=== PATIENT | female | born 1955 | race African-American/Black ===

== ENCOUNTER 2018-07-25 23:57 | Inpatient (IN) | payer BC ==
[2018-07-26 01:04] LABS: #Eosinphils 0.1 thou/uL (0.0-0.7); #Lymphocytes 1.6 thou/uL (1.20-3.40); #Monocytes 0.5 thou/uL (0.11-0.59); #Neutrophils 6.4 thou/uL (1.40-6.50); %Basophils 0.3 % (0.0-1.0); %Eosinophils 0.7 % (0.0-10.0); %Lymphocytes 18.1 % (21.0-51.0); %Neutrophils 74.9 % (42.0-75.0); Hemoglobin 13.3 g/dL (12.0-16.0); Mean Corpuscular HGB CONC 33.9 g/dL (32.0-36.0); Mean Corpuscular Hemoglobin 30.7 pg (27.0-31.0); Mean Corpuscular Volume 90.5 fL (78.0-98.0); Mean Platelet Volume 6.5 fL (7.4-10.4); Platelet Count 237 thou/uL (130-400); RBC Distribution Width 12.1 % (11.5-14.5); Red Blood Cell (RBC) Count 4.33 mill/uL (4.20-5.40); White Blood Cell (WBC) Count 8.6 thou/uL (4.8-10.8)
[2018-07-26 01:22] LABS: ALT (SGPT) 11 U/L (8-55); AST (SGOT) 19 U/L (5-34); Albumin 4.3 g/dL (3.4-4.8); Alkaline Phosphatase 89 U/L (40-150); Anion Gap 12 mmol/L (10-20); BUN (Urea Nitrogen) 16 mg/dL (9.8-20.1); Bilirubin, Total 0.5 mg/dL (0.2-1.2); CK (CPK) 95 U/L (29-168); Calc. Creatinine Clearance 0 mL/min (70-130); Calcium 9.4 mg/dL (7.8-10.44); Carbon Dioxide 27 mmol/L (23-31); Chloride 103 mmol/L (98-107); Estimated GFR-MDRD 71; Globulin 3.5 g/dL (2.4-3.5); Glucose 141 mg/dL (80-115); Lipase 17 U/L (8-78); Potassium 4.1 mmol/L (3.5-5.1); Protein, Total 7.8 g/dL (6.0-8.3); Sodium 138 mmol/L (136-145)
[2018-07-26 01:26] LABS: CKMB 2.1 ng/mL (0-6.6); Troponin I Less than 0.010 ng/mL (< 0.028)
[2018-07-26] MEDS ORDERED: Ondansetron HCl/PF 4 MG/2 ML Vial ONE (01:50)
[2018-07-26] MEDS ORDERED: Midazolam HCl 2 mg/2 ml Vial ONE (03:15)
[2018-07-26] MEDS ORDERED: Dextrose 5 %-0.45 % NaCl 1,000 ML IV SCH (04:52)
[2018-07-26 05:04] LABS: Bilirubin Negative (Negative); Blood, Urine Negative (Negative); Clarity CLEAR (Clear); Glucose, Urine (Dipstick) Negative (Negative); Leukocyte Negative (Negative); Nitrite Negative (Negative); Protein, Urine (Dipstick) Negative (Neg-Trace); Urobilinogen 0.2 mg/dL (0.2-1.0); pH, Urine 6.5 (5.0-9.0)
[2018-07-26 05:14] VITALS: BMI 30.2
[2018-07-26] MEDS ORDERED: Acetaminophen 650 MG Suppository PR PRN (05:14)
[2018-07-26] MEDS ORDERED: Bisacodyl 5 MG TAB PO PRN (05:14)
[2018-07-26] MEDS ORDERED: Ondansetron ODT 4 MG TAB PO PRN (05:14)
[2018-07-26] MEDS ORDERED: Ondansetron HCl/PF 4 MG/2 ML Vial IVP PRN (05:14)
[2018-07-26] MEDS ORDERED: Senokot 8.6 MG TAB PO PRN (05:14)
[2018-07-26] MEDS ORDERED: Sodium Chloride 0.9% 1,000 ML IV SCH (05:15)
[2018-07-26 05:22] LABS: Specific Gravity, Urine 1.054 (1.002-1.036)
[2018-07-26] MEDS ORDERED: ISOVUE-370 76%-LOCM 1 ML ONE (07:36)
[2018-07-26] MEDS: Aspirin 81 mg Enteric Coated Tablet PO SCH (08:19)
[2018-07-26] MEDS: Lisinopril 10 MG TAB PO SCH (08:19)
[2018-07-26] MEDS: Citalopram 20 MG TAB PO SCH (08:19)
[2018-07-26] MEDS ORDERED: Bisoprolol Fumarate/HCTZ 10 mg/6.25 mg Tablet PO SCH (09:00)
[2018-07-26] MEDS: Famotidine/PF 20 mg/2ml Vial SLOW IVP SCH ×2 (09:35→21:03)
[2018-07-26] MEDS ORDERED: Benzocaine 20% Spray 60 ML CAN FS SCH (11:45)
--- NOTE | 2018-07-26 13:17 | CT ---
PRELIMINARY REPORT/[facility]/EMERGENTY AFTER-HOURS PROCEDURE CT Abdomen and Pelvis With Intravenous Contrast EXAM DATE/TIME: 07/26/2018 2:30 AM CLINICAL HISTORY: 63 years old, female; Pain; Abdominal pain; Patient HX: Gay presents to ed C/O abd pain onset 21:00. PT reports she felt like this when she had gallstones in march, where she had a cholecystectomy. PT als o reports similar feeling when she had a bowel obstruction in 2005. PT reports she felt normal today and passed a normal bm. PT reports pmhx of HTN and migraines. TECHNIQUE: Axial computed tomography images of the abdomen and pelvis with intravenous contrast. Coronal reformatted images were created and reviewed. COMPARISON: No relevant prior studies available. FINDINGS: Lower thorax: Small hiatal hernia. ABDOMEN: Liver: Normal. No mass. Gallbladder and bile ducts: Prior cholecystectomy. Pancreas: Normal. No ductal dilation. Spleen: Normal. No splenomegaly. Adrenals: Normal. No mass. Kidneys and ureters: Normal. No hydronephrosis. Stomach and bowel: Colonic diverticulosis. No diverticulitis. High-grade distal small bowel obstructi on with transition point at the ileal-ileal small bowel surgical anastomosis. There appears to be camila rowing of the lumen at the site of anastomosis, potentially representing anastomotic stricture. Alternatively, findings may be due to adhesion. No bowel wall thickening. Appendix: Normal appendix. PELVIS: Bladder: Unremarkable as visualized. Reproductive: Prior hysterectomy. ABDOMEN and PELVIS: Intraperitoneal space: Trace ascites in the pelvis. Bones/joints: No acute fracture. No dislocation. Soft tissues: Unremarkable. Vasculature: Normal. No abdominal aortic aneurysm. Lymph nodes: Normal. No enlarged lymph nodes. IMPRESSION: High-grade distal small bowel obstruction with transition point at the ileal-ileal small bowel surgic al anastomosis. There appears to be narrowing of the lumen at the site of anastomosis, potentially re presenting anastomotic stricture. Alternatively, findings may be due to adhesion. Thank you for allowing us to participate in the care of your patient. Dictated and Authenticated by: Stanley Hastings MD 07/26/2018 2:42 AM Central Time ([place] & [place]) FINAL REPORT ABDOMEN AND PELVIC CT SCAN WITH IV CONTRAST: EMERGENCY AFTER HOURS EXAM TIME: 0232 hours. DATE: 07/26/18. FINDINGS/IMPRESSION: Evidence for distal small bowel obstruction possibly at the site of a prior anastomosis where there i s noted to be some fecalization. Nondilated decompressed distal small bowel. There is some scattere d gas and fecal material in the colon. POS: [facility]
--- NOTE | 2018-07-26 14:27 | CON ---
DATE OF CONSULTATION: 07/26/2018 CHIEF COMPLAINT: Abdominal pain, nausea, vomiting. HISTORY OF PRESENT ILLNESS: The patient is a 63-year-old female who yesterday started having central abdominal pain followed by nausea and vomiting similar to previous small-bowel obstruction she had i n 2012. During that admission, she had to have surgery done at [facility] in [place]. She has also had a recent laparoscopic cholecystectomy in 2018 at [facility]. She said something about having to put a temporary biliary stent prior to that surgery. She last passed flatus yesterday. She had a bowel movement yesterday. She said that they tried to put an NG tube in, but she refused and she d oes feel a little better, but still has not passed any gas. PAST MEDICAL HISTORY: Significant for obesity, hypertension, migraine headaches. PAST SURGICAL HISTORY: She has had a laparoscopic cholecystectomy, laparotomy and she has had a carlos st biopsy. MEDICATIONS: Include lisinopril 10 daily, citalopram 40 daily, bisoprolol/hydrochlorothiazide daily and an aspirin daily. ALLERGIES: She has no known drug allergies. SOCIAL HISTORY: She is . No tobacco or alcohol. She did have a colonoscopy at age 51. FAMILY HISTORY: CVA, heart disease, and skin cancer. PHYSICAL EXAMINATION: VITAL SIGNS: Temperature 98.5, pulse 86, blood pressure 107/70. GENERAL: She is awake, alert, does not appear to be in any distress. HEENT: Unremarkable. LUNGS: Clear. HEART: Regular rate and rhythm. ABDOMEN: Soft, obese. She has a well healed surgical scar midline. She does have few bowel sounds, but they are very hypoactive. LABORATORY AND X-RAY FINDINGS: Her white count is 8.6, H and H 13 and 39, platelet count 237. Elect rolytes, her glucose is 141, otherwise are normal. Her CT scan showed what appeared to be a possible stricture at an ileostomy anastomosis, but minimal small bowel dilatation. ASSESSMENT: Partial small-bowel obstruction. PLAN: Recommend NG suction, IV hydration, serial exams and x-rays.
--- NOTE | 2018-07-26 14:28 | HP ---
REASON FOR ADMISSION: Small-bowel obstruction. HISTORY OF PRESENT ILLNESS: The patient gives history of abdominal pain which started at 9:00 p.m. y esterday evening. She also started to have severe vomiting episodes nearly 3-4 times. Her abdominal pain is in the right lower quadrant, which was always there and the intensity was 5-6/10. Last stephan l movement was yesterday afternoon which was normal, semi-solid stool. Currently, has passed flatus early this morning. No BM yet from this morning. Currently, her abdominal pain is 2-3/10 in intensi ty. Has not vomited after being hospitalized here. No complaints of chest pain, palpitation, PND or orthopnea. The patient states she has had 2 prior episodes of bowel obstruction, one in 2012 when s he had surgery in [place] and in 2014, she was managed medically for small-bowel obstruction. PAST MEDICAL/SURGICAL HISTORY: Hypertension, depression, migraine headaches, cholecystectomy, total abdominal hysterectomy, right breast lumpectomy, small-bowel obstruction with surgery done in 2012 in [place]. A repeat hospitalization for small-bowel obstruction in 2014, which was managed medically. CURRENT MEDICATIONS: Takes citalopram 40 mg p.o. daily, lisinopril 10 mg p.o. daily, bisoprolol with hydrochlorothiazide 10/6.25 mg p.o. daily, aspirin 81 mg p.o. daily, Advil p.r.n. ALLERGIES: No known drug allergies. PERSONAL HISTORY: Does not abuse alcohol or drugs. No history of smoking. FAMILY HISTORY: Mother at the age of 85 years, has had history of cutaneous T-cell lymphoma. S he also had a stroke and heart disease. Father at the age of 51 years. He has had stroke and d ied of aneurysm related issue. CODE STATUS: FULL. Power of panama hat smearer is her sister, Ms. Zuluaga, number to reach her is [phone]. REVIEW OF SYSTEMS: The following complete review of systems was negative, unless otherwise mentioned in the HPI or below: Constitutional: Weight loss or gain, ability to conduct usual activities. Skin: Rash, itching. Eyes: Double vision, pain. ENT/Mouth: Nose bleeding, neck stiffness, pain, tenderness. Cardiovascular: Palpitations, dyspnea on exertion, orthopnea. Respiratory: Shortness of breath, wheezing, cough, hemoptysis, fever or night sweats. Gastrointestinal: Poor appetite, abdominal pain, heartburn, nausea, vomiting, constipation, or diarrhea. Genitourinary: Urgency, frequency, dysuria, nocturia. Musculoskeletal: Pain, swelling. Neurologic/Psychiatric: Anxiety, depression. Allergy/Immunologic: Skin rash, bleeding tendency. PHYSICAL EXAMINATION: GENERAL: The patient is a 63-year-old female who is currently not in any acute distress. VITAL SIGNS: Blood pressure 140/86, pulse 80 per minute, respiratory rate 18 per minute, temperature 97.1 degrees Fahrenheit, saturating 95% on room air. NECK: Supple, no elevated JVD. HEENT: Eyes: Extraocular muscles intact. Pupils reacting to light. Oral cavity: Mucous membranes are dry. No exudates or congestion. CARDIOVASCULAR: S1, S2 heard. Regular rhythm. RESPIRATORY: Air entry 1+ bilaterally. No rales or rhonchi. ABDOMEN: Soft. Mild tenderness in the right lower quadrant. No rigidity or guarding. EXTREMITIES: No peripheral edema or calf tenderness. VASCULAR SYSTEM: Peripheral pulses 2+ bilateral. No ischemic ulcerations or gangrene. CENTRAL NERVOUS SYSTEM: No gross focal deficits noted. The patient is alert, awake, oriented well. PSYCHIATRIC: The patient's mood is euthymic. No hallucinations or delusions. LABORATORY AND X-RAY FINDINGS: CT abdomen and pelvis done in the ER showed high grade small-bowel ob struction at the ileoileal anastomotic site. Electrolytes are stable. Serum bicarbonate is 27, BUN 16, creatinine 0.8. Liver enzymes within normal limits. Albumin is 4.3. Lipase is 17. White count of 8, H&H 13 and 39, platelet count 237 with 74% neutrophils. CLINICAL IMPRESSION AND PLAN: The patient will be admitted to medical/surgical floor for high grade small-bowel obstruction. She has had two prior such episodes with prior surgery done in 2012 and med ical management in 2014. She currently has passed flatus. We will await Dr. No's consultation fo General Surgery. The patient likely will need small bowel follow through, which might resolve her small-bowel obstruction as well. I have advised her to ambulate on the floor at least 3-4 times on t he hour. She will be kept n.p.o. She will be on normal saline at 70 mL per hour. We will continue to closely monitor her on medical/surgical floor.
[2018-07-26] MEDS: Acetaminophen 1,000 MG in Premix Bag 1 BAG IVPB PRN ×2 (15:18→21:06)
[2018-07-26] MEDS: Sodium Chloride 0.9% 1,000 ML IV SCH ×2 (15:21→18:17)
[2018-07-27] MEDS: Sodium Chloride 0.9% 1,000 ML IV SCH ×3 (01:45→17:37)
[2018-07-27] MEDS: Acetaminophen 1,000 MG in Premix Bag 1 BAG IVPB PRN (03:28)
[2018-07-27 04:49] LABS: ALT (SGPT) 8 U/L (8-55); AST (SGOT) 15 U/L (5-34); Albumin 3.3 g/dL (3.4-4.8); Alkaline Phosphatase 65 U/L (40-150); Anion Gap 8 mmol/L (10-20); BUN (Urea Nitrogen) 8 mg/dL (9.8-20.1); Bilirubin, Total 1.1 mg/dL (0.2-1.2); Calc. Creatinine Clearance 113 mL/min (70-130); Calcium 8.2 mg/dL (7.8-10.44); Carbon Dioxide 24 mmol/L (23-31); Chloride 111 mmol/L (98-107); Estimated GFR-MDRD Greater than 90; Globulin 2.5 g/dL (2.4-3.5); Glucose 81 mg/dL (80-115); Potassium 3.4 mmol/L (3.5-5.1); Protein, Total 5.8 g/dL (6.0-8.3); Sodium 140 mmol/L (136-145)
[2018-07-27 05:08] LABS: Eosinophils 1 % (0-10); Hemoglobin 10.4 g/dL (12.0-16.0); Lymphocytes 62 % (21-51); MDiff Complete? YES; Mean Corpuscular HGB CONC 34.1 g/dL (32.0-36.0); Mean Corpuscular Hemoglobin 31.4 pg (27.0-31.0); Mean Corpuscular Volume 91.9 fL (78.0-98.0); Mean Platelet Volume 6.5 fL (7.4-10.4); Monocytes 6 % (0-10); Neutrophil 31 % (42-75); PLT Morphology Comment Appears Adequate; Platelet Count 178 thou/uL (130-400); RBC Distribution Width 11.9 % (11.5-14.5); Red Blood Cell (RBC) Count 3.31 mill/uL (4.20-5.40); White Blood Cell (WBC) Count 4.5 thou/uL (4.8-10.8)
[2018-07-27] MEDS: Citalopram 20 MG TAB PO SCH (09:21)
[2018-07-27] MEDS: Famotidine/PF 20 mg/2ml Vial SLOW IVP SCH ×3 (09:21→20:49)
[2018-07-27] MEDS: Lisinopril 10 MG TAB PO SCH (09:22)
[2018-07-27] MEDS: Aspirin 81 mg Enteric Coated Tablet PO SCH (09:23)
--- NOTE | 2018-07-27 09:26 | RAD ---
ABDOMEN 1 VIEW: HISTORY: Abdominal pain. Obstruction. COMPARISON: 07/26/18. FINDINGS: Gas and stool are apparent within the colon and rectum. Nondilated gas-filled loops of small bowel a re present throughout the abdomen. Metallic clips over the gallbladder fossa. Degenerative change l umbar spine and hips. IMPRESSION: 1. Nonspecific bowel gas pattern based on the current radiograph. 2. Status post cholecystectomy. POS: [facility]
--- NOTE | 2018-07-27 09:36 | PRG ---
DATE OF SERVICE: 07/27/2018 The patient says she is feeling a lot better. She is not having any nausea. She passed some gas. PHYSICAL EXAMINATION: VITAL SIGNS: Temperature 97.7, pulse 83, blood pressure 122/75. GENERAL: She looks good. ABDOMEN: Soft, obese. There are a few bowel sounds. No tenderness. KUB this morning shows still one loop of more dilated small bowel, but air in the colon. IMPRESSION: Partial small-bowel obstruction, resolving. PLAN: We will allow ice chips and sips of clears. Continue ambulation.
--- NOTE | 2018-07-27 13:28 | PDOC.PN ---
- Subjective Encounter Start Date: 07/27/18 Encounter Start Time: 09:00 Subjective: is passing flatus, no bm -: no abd pain or nausea/vomiting -: ambulating in hallway - Objective MAR Reviewed: Yes Vital Signs & Weight: Vital Signs (12 hours) Temp Pulse Resp BP BP BP Pulse Ox 07/27/18 11:38 98.7 F 71 18 103/59 L 94 L 07/27/18 09:22 108/69 07/27/18 08:58 97.7 F 83 16 07/27/18 07:11 97.7 F 83 16 122/75 95 07/27/18 03:32 98.4 F 71 18 108/67 95 Weight Weight 178 lb 12.718 oz I&O: 07/26/18 07/27/18 07/28/18 06:59 06:59 06:59 Intake Total 3200 15 Balance 3200 15 Result Diagrams: 07/27/18 03:38 07/27/18 03:38 Phys Exam - Physical Examination HEENT: PERRLA, moist MMs Neck: no JVD, supple Respiratory: no wheezing, no rales Cardiovascular: RRR, no significant murmur Gastrointestinal: soft, non-tender, no distention Musculoskeletal: no edema, pulses present Neurological: non-focal, moves all 4 limbs Psychiatric: normal affect, A&O x 3 Dx/Plan (1) SBO (small bowel obstruction) Code(s): K56.609 - UNSP INTESTNL OBST, UNSP TO PARTIAL VERSUS COMPLETE OBST Status: Acute (2) HTN (hypertension) Code(s): I10 - ESSENTIAL (PRIMARY) HYPERTENSION Status: Chronic Qualifiers: Hypertension type: essential hypertension Qualified Code(s): I10 - Essential (primary) hypertension (3) Depression Code(s): F32.9 - MAJOR DEPRESSIVE DISORDER, SINGLE EPISODE, UNSPECIFIED Status : Chronic Qualifiers: Depression Type: major depressive disorder Major depression episode severity: unspecified - Plan is npo, diet per 's advice -: replace potassium -: gentle iv hydration -: to continue amb in hallway -: change status to inpt, abd xray results noted * . Review of Systems - Medications/Allergies Allergies/Adverse Reactions: Allergies Allergy/AdvReac Type Severity Reaction Status Date / Time No Known Allergies Allergy Verified 07/26/18 05:10 Medications: Current Medications Acetaminophen (Tylenol) 650 mg PO Q4H PRN PRN Reason: Headache/Fever or Pain Acetaminophen (Tylenol) 650 mg SC Q4H PRN PRN Reason: Headache/Fever or Pain Aspirin (Ecotrin) 81 mg PO DAILY [facility] Last Admin: 07/27/18 09:23 Dose: 81 mg Bisacodyl (Dulcolax) 10 mg PO DAILYPRN PRN PRN Reason: Constipation Citalopram Hydrobromide (Celexa) 40 mg PO DAILY [facility] Last Admin: 07/27/18 09:21 Dose: 40 mg Famotidine (Pepcid) 20 mg SLOW IVP Q12HR [facility] Last Admin: 07/27/18 09:25 Dose: 20 mg Sodium Chloride (Normal Saline 0.9%) 1,000 mls @ 125 mls/hr IV .Q8H [facility] Last Admin: 07/27/18 09:20 Dose: 1,000 mls Acetaminophen 1,000 mg/ Device 100 mls @ 400 mls/hr IVPB Q6H PRN PRN Reason: PAIN/FEVER>101 Stop: 07/27/18 15:03 Last Admin: 07/27/18 03:28 Dose: 100 mls Lactulose (Lactulose) 20 gm PO DAILYPRN PRN PRN Reason: Constipation Lisinopril (Zestril) 10 mg PO DAILY [facility] Last Admin: 07/27/18 09:22 Dose: 10 mg Morphine Sulfate (Morphine) 2 mg SLOW IVP Q2H PRN PRN Reason: Pain Ondansetron HCl (Zofran Odt) 4 mg PO Q6H PRN PRN Reason: Nausea/Vomiting Ondansetron HCl (Zofran) 4 mg IVP Q6H PRN PRN Reason: Nausea/Vomiting Senna (Senokot) 2 tab PO HSPRN PRN PRN Reason: Constipation Sodium Chloride (Flush - Normal Saline) 10 ml IVF Q12HR [facility] Last Admin: 07/27/18 09:26 Dose: 10 ml Sodium Chloride (Flush - Normal Saline) 10 ml IVF PRN PRN PRN Reason: Saline Flush
[2018-07-27] MEDS: Acetaminophen 325 MG TAB PO PRN (17:30)
[2018-07-28] MEDS: Acetaminophen 325 MG TAB PO PRN (04:26)
[2018-07-28] MEDS: Sodium Chloride 0.9% 1,000 ML IV SCH ×3 (05:28→18:22)
[2018-07-28] MEDS: Famotidine/PF 20 mg/2ml Vial SLOW IVP SCH (10:04)
[2018-07-28] MEDS: Aspirin 81 mg Enteric Coated Tablet PO SCH (10:04)
[2018-07-28] MEDS: Lisinopril 10 MG TAB PO SCH (10:04)
[2018-07-28] MEDS: Citalopram 20 MG TAB PO SCH (10:04)
--- NOTE | 2018-07-28 14:07 | PRG ---
DATE OF SERVICE: 07/28/2018 SUBJECTIVE: Patient reports feeling a lot better. Pain has gone from her abdomen. She is passing f latus. She is hungry. PHYSICAL EXAMINATION: VITAL SIGNS: On examination, her temperature is 98.7, pulse 70, blood pressure 148/82. She looks go od. ABDOMEN: Soft, nondistended, nontender, good bowel sounds. ASSESSMENT: Doing well. PLAN: We will start on clear liquids. Advance as tolerated.
--- NOTE | 2018-07-28 14:53 | PDOC.PN ---
- Subjective Encounter Start Date: 07/28/18 Encounter Start Time: 10:20 Subjective: no bm yet, is passing flatus -: is amb in hallway -: no abd distention, has occasional colic in RLQ - Objective MAR Reviewed: Yes Vital Signs & Weight: Vital Signs (12 hours) Temp Pulse Resp BP BP BP Pulse Ox 07/28/18 11:14 98.7 F 70 16 148/82 H 98 07/28/18 10:04 108/69 07/28/18 08:32 98.3 F 72 18 96 07/28/18 07:18 98.3 F 72 18 96 07/28/18 04:41 98.3 F 73 18 129/70 96 Weight Weight 178 lb 12.718 oz I&O: 07/27/18 07/28/18 07/29/18 06:59 06:59 06:59 Intake Total 3200 1830 Balance 3200 1830 Result Diagrams: 07/27/18 03:38 07/27/18 03:38 Phys Exam - Physical Examination HEENT: PERRLA, moist MMs Neck: no JVD, supple Respiratory: no wheezing, no rales Cardiovascular: RRR, no significant murmur Gastrointestinal: soft, no distention, positive bowel sounds no rigidity or guarding Musculoskeletal: no edema, pulses present Neurological: non-focal, moves all 4 limbs Psychiatric: normal affect, A&O x 3 Dx/Plan (1) SBO (small bowel obstruction) Code(s): K56.609 - UNSP INTESTNL OBST, UNSP TO PARTIAL VERSUS COMPLETE OBST Status: Acute (2) HTN (hypertension) Code(s): I10 - ESSENTIAL (PRIMARY) HYPERTENSION Status: Chronic Qualifiers: Hypertension type: essential hypertension Qualified Code(s): I10 - Essential (primary) hypertension (3) Depression Code(s): F32.9 - MAJOR DEPRESSIVE DISORDER, SINGLE EPISODE, UNSPECIFIED Status : Chronic Qualifiers: Depression Type: major depressive disorder Major depression episode severity: unspecified - Plan is cleared for clear liq diet today -: to continue amb in hallway -: electrolytes are stable -: ?small bowel follow through * . Review of Systems - Medications/Allergies Allergies/Adverse Reactions: Allergies Allergy/AdvReac Type Severity Reaction Status Date / Time No Known Allergies Allergy Verified 07/26/18 05:10 Medications: Current Medications Acetaminophen (Tylenol) 650 mg PO Q4H PRN PRN Reason: Headache/Fever or Pain Last Admin: 07/28/18 04:26 Dose: 650 mg Acetaminophen (Tylenol) 650 mg IN Q4H PRN PRN Reason: Headache/Fever or Pain Aspirin (Ecotrin) 81 mg PO DAILY [facility] Last Admin: 07/28/18 10:04 Dose: 81 mg Bisacodyl (Dulcolax) 10 mg PO DAILYPRN PRN PRN Reason: Constipation Citalopram Hydrobromide (Celexa) 40 mg PO DAILY [facility] Last Admin: 07/28/18 10:04 Dose: 40 mg Famotidine (Pepcid) 20 mg SLOW IVP Q12HR [facility] Last Admin: 07/28/18 10:04 Dose: 20 mg Sodium Chloride (Normal Saline 0.9%) 1,000 mls @ 125 mls/hr IV .Q8H [facility] Last Admin: 07/28/18 11:15 Dose: Not Given Lactulose (Lactulose) 20 gm PO DAILYPRN PRN PRN Reason: Constipation Lisinopril (Zestril) 10 mg PO DAILY [facility] Last Admin: 07/28/18 10:04 Dose: 10 mg Morphine Sulfate (Morphine) 2 mg SLOW IVP Q2H PRN PRN Reason: Pain Ondansetron HCl (Zofran Odt) 4 mg PO Q6H PRN PRN Reason: Nausea/Vomiting Ondansetron HCl (Zofran) 4 mg IVP Q6H PRN PRN Reason: Nausea/Vomiting Senna (Senokot) 2 tab PO HSPRN PRN PRN Reason: Constipation Sodium Chloride (Flush - Normal Saline) 10 ml IVF Q12HR [facility] Last Admin: 07/28/18 10:00 Dose: 10 ml Sodium Chloride (Flush - Normal Saline) 10 ml IVF PRN PRN PRN Reason: Saline Flush
[2018-07-28 16:10] VITALS: BP 128/82; TEMP 98.2
--- NOTE | 2018-07-29 02:04 | DIS ---
DISCHARGE DIAGNOSIS: Small-bowel obstruction, resolved. PROCEDURES DURING ADMISSION: IV hydration, bowel rest. HOSPITAL COURSE: Patient was admitted. NG tube placement was attempted multiple times, unfortunatel y was not able to be done. She was given IV fluids and bowel rest. Over the time, she starts passin g gas. She was started on liquids. She started having bowel movements. She is now doing well. She has no pain. She is discharged home on soft diet. She will follow up with her primary care monica crouch in 2 weeks.
== END 2018-07-28 18:46 | disposition home or self-care (01) | DRG 390 ==
LOC: ERS 23:57 → SURG A 07-26 03:20 → OBSVTOIN 07-26 03:20
PROVIDERS: ADMIT Internal Medicine; ATTEND Internal Medicine
DX: K56.609 Unspecified intestinal obstruction, unspecified as to partial versus complete obstruction (principal); I10 Essential (primary) hypertension; F32.9 Major depressive disorder, single episode, unspecified; G43.909 Migraine, unspecified, not intractable, without status migrainosus; Z90.49 Acquired absence of other specified parts of digestive tract; Z90.710 Acquired absence of both cervix and uterus; Z79.82 Long term (current) use of aspirin; Z79.899 Other long term (current) drug therapy; K56.600 Partial intestinal obstruction, unspecified as to cause
CPT/HCPCS: 36415; 74018; 74177; 80053; 81003; 82553; 83690; 84484; 85025; A4216; J0131; J2250; J2270; J2405; S0028